=== PATIENT | female | born 1955 | race Caucasian/White ===

== ENCOUNTER 2021-10-19 14:57 | Day surgery (SDC) | payer MEDICARE ==
[2021-10-15 11:08] LABS: BASOPHILS # (AUTO) 0.1 X10'3 (0-0.2); EOSINOPHILS # (AUTO) 0.1 X10'3 (0-0.9); EOSINOPHILS % (AUTO) 1.5 % (0-6); HEMATOCRIT 39.7 % (35.0-45.0); HEMOGLOBIN 13.7 g/dl (12.0-16.0); LYMPHOCYTES # (AUTO) 1.8 X10'3 (1.1-4.8); LYMPHOCYTES % (AUTO) 19.8 % (21-51); MEAN CORPUSCULAR HEMOGLOBIN 30.8 PG (27.0-31.0); MEAN CORPUSCULAR HGB CONC 34.6 g/dL (33.0-36.5); MEAN CORPUSCULAR VOLUME 88.8 FL (78-98); MEAN PLATELET VOLUME 9.2 FL (7.4-10.4); MONOCYTES # (AUTO) 0.4 X10'3 (0-0.9); MONOCYTES % (AUTO) 4.3 % (2-12); NEUTROPHILS # (AUTO) 6.7 X10'3 (1.8-7.7); NEUTROPHILS % (AUTO) 73.4 % (42-75); PLATELET COUNT 335 X10'3 (140-440); RED BLOOD COUNT 4.47 X10'6 (4.20-5.60); RED CELL DISTRIBUTION WIDTH 13.6 % (11.5-14.5); WHITE BLOOD COUNT 9.1 X10'3 (4.5-11.0)
[2021-10-15 11:20] LABS: APTT 27 SECONDS (22-32)
[2021-10-15 12:07] LABS: ALBUMIN 3.9 G/DL (3.4-5.0); ANION GAP 11 (8-16); BLOOD UREA NITROGEN 12 MG/DL (7-18); BUN/CREATININE RATIO 17.9 (6.6-38.0); CHLORIDE 102 MMOL/L (99-107); CREATININE 0.67 MG/DL (0.40-0.90); GLUCOSE 127 MG/DL (70-104); SODIUM 138 MMOL/L (135-145); TOTAL CARBON DIOXIDE 25.1 MMOL/L (24-32); eGFR 88 ML/MIN
[~2021-10-19] VITALS: Ht 162.6 cm; Wt 75.7 kg
[2021-10-19] VITALS (8 sets, daily range): BP systolic 114–162; BP diastolic 53–80
[2021-10-19] MEDS ORDERED: LORazepam 0.5 MG tablet PO PRN (15:15)
[2021-10-19] MEDS ORDERED: diphenhydrAMINE 25mg capsule PO PRN (15:15)
[2021-10-19] MEDS ORDERED: ASPI-1264 PO (15:19)
[2021-10-19] MEDS ORDERED: METO50TA16 PO (15:19)
[2021-10-19] MEDS ORDERED: LOSA1TAB9 PO (15:19)
[2021-10-19] MEDS ORDERED: SERT-433 PO (15:19)
[2021-10-19] MEDS ORDERED: NITR0.4T51 SL (15:19)
[2021-10-19] MEDS: normal saline 1,000 ML IV SCH ×2 (15:22→15:40)
[2021-10-19] MEDS ORDERED: SERT-434 PO (15:23)
[2021-10-19] MEDS ORDERED: ATOR-2 PO (15:23)
[2021-10-19] MEDS ORDERED: LIDOcaine/PRILOcaine 5gm cream TP ONE (15:25)
[2021-10-19] MEDS ORDERED: iohexol 350MG/ML 100ml bottle IV ONE (16:07)
[2021-10-19] MEDS ORDERED: verapamil 2.5 mg/ml inj IV ONE (16:15)
[2021-10-19] MEDS ORDERED: heparin 1,000unit/ml 10ml vial 10 ML ONE (16:15)
[2021-10-19] MEDS ORDERED: nitroGLYCERIN-Tridil 50MG/D5W 250 ML IV ONE (16:15)
[2021-10-19] MEDS ORDERED: LIDOcaine 1% (10mg/ml)w/preservative injection 20ml MDV ONE (16:15)
[2021-10-19] MEDS ORDERED: fentaNYL/PF 50MCG/1 ML 2ML syringe ONE (16:37)
[2021-10-19] MEDS ORDERED: midazolam 1 mg/ML 2ml injection ONE (16:37)
[2021-10-19] MEDS ORDERED: ondansetron/PF 4mg/2ml inj IV PRN (17:45)
[2021-10-19] MEDS ORDERED: nitroGLYCERIN 0.4mg SUBLingual tab SL PRN (17:45)
[2021-10-19] MEDS ORDERED: OXAZEpam 15mg capsule PO PRN (17:45)
[2021-10-19] MEDS ORDERED: proCHLORperazine 10 MG/2 ml inj IV PRN (17:45)
[2021-10-20] MEDS ORDERED: FLU VACC QS2021-22(6MOS UP)/PF 60 MCG/0.5 ML SYRINGE IM ONE (16:45)
== END 2021-10-19 19:50 | disposition home or self-care (01) ==
LOC: SSTAY O 14:57
PROVIDERS: ATTEND Internal Medicine Interventional Cardiology
DX: R94.39 Abnormal result of other cardiovascular function study (principal); R07.89 Other chest pain; I25.118 Atherosclerotic heart disease of native coronary artery with other forms of angina pectoris; I25.2 Old myocardial infarction; I10 Essential (primary) hypertension; E78.5 Hyperlipidemia, unspecified; Z95.5 Presence of coronary angioplasty implant and graft; Z79.82 Long term (current) use of aspirin; Z79.899 Other long term (current) drug therapy; Z90.710 Acquired absence of both cervix and uterus; Z98.890 Other specified postprocedural states; Z72.89 Other problems related to lifestyle; Z82.49 Family history of ischemic heart disease and other diseases of the circulatory system; Z80.1 Family history of malignant neoplasm of trachea, bronchus and lung
CPT/HCPCS: 36415; 80048; 85025; 85610; 85730; 93005; 93458; 99152; C1769; C1894; J1644; J2250; J3010; J3490; J7030; Q0163; Q9967; 99153; A4620; A5120